=== PATIENT | male | born 1960 | race Caucasian/White ===

== ENCOUNTER → 2018-01-21 08:08 | Outpatient (CLI) | payer OTHER, SELFPAY ==
--- NOTE | 2018-01-21 08:12 | US_ITS ---
STUDY: THYROID ULTRASOUND REASON FOR EXAM: Male, 57 years old. Nodule felt by doctor. TECHNIQUE: Ultrasound evaluation of the thyroid was performed with real-time and static marin-scale imaging. COMPARISON: None. FINDINGS: RIGHT LOBE: The right lobe of the thyroid gland measures 5.1 x 1.6 x 1.5 cm. There is a homogeneous echotexture. There are no demonstrated solid, cystic or complex lesions. Is normal vascularity on Doppler imaging. LEFT LOBE: The left lobe of the thyroid gland measures 1.1 x 1.5 x 1.6 cm. There is a homogeneous echotexture. There are no demonstrated solid, cystic or complex lesions. Normal vascularity and Doppler imaging. ISTHMUS: The isthmus measures 0.3 cm. The regional lymph nodes are normal. US/Thyroid IMPRESSION: Essentially normal thyroid. Electronically Signed: Franco Gleason DO at 20:06 EDT Tel [phone], Service support ,
== END ==
PROVIDERS: Family Provider Internal Medicine; PCP Internal Medicine; Visit Provider Internal Medicine
DX: E04.1 Nontoxic single thyroid nodule (principal)
CPT/HCPCS: 76536

== ENCOUNTER → 2018-04-13 13:57 | Outpatient (CLI) | payer OTHER, SELFPAY ==
--- NOTE | 2018-04-13 14:00 | RAD_ITS ---
STUDY: X-RAY CHEST REASON FOR EXAM: Male, 57 years old. Shortness of breath. Possible COPD. TECHNIQUE: PA and lateral views of the chest on 3 films. COMPARISON: None. FINDINGS: The lungs are clear and expanded. There is no demonstrated pleural abnormality. Normal size heart. Normal mediastinum and augusto. Normal visualized pulmonary arteries. Normal visualized aortic arch and descending thoracic aorta. There are degenerative changes of the mid thoracic spine. Normal visualized ribs, clavicles, and shoulders. There is no demonstrated abnormality of the visualized soft tissue structures of the upper abdomen. RAD/Chest PA and Lateral IMPRESSION: No acute cardiopulmonary disease. Electronically Signed: Armond Brock MD at 14:11 EDT , Service support ,
== END ==
PROVIDERS: Family Provider Internal Medicine; PCP Internal Medicine; Referring Provider Internal Medicine; Visit Provider Internal Medicine
DX: J44.9 Chronic obstructive pulmonary disease, unspecified (principal)
CPT/HCPCS: 71046

== ENCOUNTER → 2018-06-09 06:57 | Outpatient (CLI) | payer OTHER, SELFPAY ==
--- NOTE | 2018-06-09 07:00 | ECHOD_ITS ---
Reason For Study: OTT Procedure This was a 2D Doppler, Color Flow transthoracic echocardiogram. Exam performed in department. Left Ventricle Normal LV size. Left ventricular systolic function is normal. The estimated ejection fraction is 56 %. Normal diastology for age. No regional wall motion abnormalities noted. Right Ventricle Normal RV size. Normal systolic function. Atria Normal left atrium. Normal right atrium. Mitral Valve Mild diffuse mitral valve thickening. Posterior leaflet mitral valve prolapse. Mild (1+) eccentric mitral valve insufficiency. Tricuspid Valve Normal tricuspid valve. Mild tricuspid valve insufficiency. Aortic Valve Normal aortic valve. Trisinus/trileaflet aortic valve. Pulmonic Valve Normal pulmonic valve. Great Vessels Normal aortic root. The pulmonary artery is normal size. Normal inferior vena cava. Pericardium/Pleural No pericardial effusion. MMode/2D Measurements & Calculations LVIDd: 4.9 cm IVSd: 0.89 cm Ao root diam: 3.4 cm LVIDs: 3.3 cm LVPWd: 0.94 cm RVDd: 3.8 cm FS: 33.1 % LAV(MOD-bp): 56.2 ml LVAd ap4: 33.6 cm2 EDV(MOD-sp2): 91.0 ml LAV(MOD-bp) Indexed: 26.0 ml/m2 EDV(MOD-sp4): 109.6 ml EF(MOD-sp2): 59.5 % LAV(MOD-sp2): 62.2 ml EDV(sp4-el): 108.0 ml LAV(MOD-sp4): 51.3 ml LVAs ap4: 21.1 cm2 ESV(MOD-sp4): 49.9 ml ESV(sp4-el): 48.1 ml EF(MOD-sp4): 54.5 % EF(sp4-el): 55.4 % SV(MOD-sp4): 59.8 ml SV(MOD-sp2): 54.1 ml SV(sp4-el): 59.8 ml LA dimension(2D): 3.6 cm LA A4 area: 19.7 cm2 RA A4 area: 17.4 cm2 Time Measurements MV dec time: 0.23 sec Doppler Measurements & Calculations MV E max arash: 42.7 cm/sec Lat Peak E' Arash: 10.3 cm/sec Med Peak E' Arash: 8.3 cm/sec MV A max arash: 39.3 cm/sec E/E' lat: 4.2 E/E' med: 5.1 MV E/A: 1.1 Ao V2 max: 88.6 cm/sec LV V1 max: 96.1 cm/sec PA V2 max: 112.8 cm/sec Ao max P.1 mmHg LV V1 max P.7 mmHg TR max arash: 169.9 cm/sec TR max P.6 mmHg Interpretation Summary Normal LV size. Left ventricular systolic function is normal. The estimated ejection fraction is 56 %. Normal diastology for age. Mild (1+) eccentric mitral valve insufficiency. Ordering Physician: Rebecca Bedoya Referring Physician: Rebecca Bedoya Performed By: Leilani Cisse, TRISHA, RVT
--- NOTE | 2018-06-09 09:40 | STRESSREP ---
Stress Test Report Exercise myocardial perfusion stress test. 57-year-old man with a history of dyspnea on exertion. Medications vitamins. Stress protocol: Resting EKG demonstrates sinus bradycardia with a rate of 57 bpm resting blood pressure 140/98 mmHg. The patient exercised according to regular Jamil protocol for a total duration of 11 minutes and 16 seconds completing 2 minutes and 16 seconds into stage III of the Jamil protocol. The maximum workload attained was 13.4 metabolic equivalents. The maximum heart rate was 146 bpm which was 89% of maximum predicted heart rate. The patient maintained sinus rhythm throughout the recording. At rest there were no ST or T wave changes noted suggest ischemia peak exercise nonspecific ST-T wave changes were noted with normally the criteria for ischemia. No clinical angina was noted resting blood pressure 140/98 with a peak blood pressure 180/84. No clinical angina was noted the test was terminated due to leg fatigue. Myocardial perfusion protocol. 11.9 mCi of technetium 99m sestamibi was injected at rest. The patient exercised according to regular Jamil protocol for total duration of 11 minutes plus. At peak exercise 34.3 mCi of technetium 99m sestamibi was injected stress images were obtained stress and rest images were reconstructed and compared in the short axis vertical and horizontal long axis. Gated images were also obtained next Perfusion SPECT analysis. Review of the images demonstrate normal uptake of tracer noted in all areas of myocardium. The resting images similarly demonstrate normal uptake of tracer noted in all areas of myocardium. No areas of reversibility are noted suggest ischemia no previous infarct is noted. Next Gated SPECT analysis: The gated ejection fraction is noted to be 58%. Conclusion: Normal exercise myocardial perfusion stress test at a high workload. Preserved ejection fraction. No clinical angina noted.
--- OUTSIDE RECORDS SUMMARY | 2018-09-10 11:32 | XMS RPT_ITS | Continuity of Care Document ---
:1960 Author Organization [facility] Address [address] [place] [address] Phone Care Team Providers Name Role Phone Rebecca Bedoya DO Unavailable Dr. Hneri More Unavailable Dr. 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: Active Anxiety (F41.9, 300.00) Comments: improving Status: Active Bilateral carpal tunnel syndrome (G56.03, 354.0) Comments: improved Status: Active BMI 25.0-25.9,adult (Z68.25, V85.21) Status: Active BPH without urinary obstruction (N40.0, 600.00) Status: Active COPD (chronic obstructive pulmonary disease) (J44.9, 496) Comments: may be allergic we discussed singulair potentially Status: Active Decreased exercise tolerance (R68.89, 780.99) Comments: get testing Status: Active Dizziness (R42, 780.4) Status: Active Dysplastic nevi (D23.9, 216.9) Status: Active DYSPLASTIC NEVUS Status: Active Dyspnea on exertion (R06.09, 786.09) Status: Active Elevated BP without diagnosis of hypertension (R03.0, 796.2) Comments: watch salt and caffeine Status: Active Encounter for screening for malignant neoplasm of colon (Renamed from Special screening for malignant neoplasms, colon) (Z12.11, V76.51) Status: Active Encounter for screening for malignant neoplasm of prostate (Renamed from Screening for prostate cancer) (Z12.5, V76.44) Status: Active Fatigue (R53.83, 780.79) Comments: snoring - family hx sleep apnea consider if heart tests neg Status: Active History of tobacco use (Z87.891, V15.82) Comments: curent nonsmoker Status: Active Hypercholesterolemia (E78.00, 272.0) Status: Active Influenza vaccination declined (Renamed from Refused influenza vaccine) (Z28.21, V64.06) Status: Active [facility] EXAM Status: Active Screening for prostate cancer (Z12.5, V76.44) Status: Active Unspecified Diagnosis Status: Active Unspecified hearing loss, unspecified ear (H91.90, 389.9) Comments: ?? Status: Active Medications Name Dates Details No Known Historical Medications Asmanex 120 Metered Doses 220 MCG/INH Inhalation Aerosol Powder Breath Activated 2 (two) Puff puffs qd for 0 days Quantity: 2 {Inhalation} Refills: 0 Ordered:29-May-2018 Elke Beasley Start : 03-Apr-2018 End : 29-May-2018 Inactive CELEXA, 10MG (Oral Tablet) 1 (one) Tablet qd for 0 days Quantity: 30 {Tablet} Refills: 3 Ordered:24-Apr-2011 Racquel Gupta LPN Start : 11-Dec-2009 End : 24-Apr-2011 Inactive VICODIN, 5-500MG (Oral Tablet) 1 Tablet q 8hrs prn for 1 days Refills: 0 Ordered:08-Aug-2016 Racquel Gupta LPN Start : 24-Apr-2011 End : 25-Apr-2011 Inactive Allergies and Adverse Reactions Name Dates Details No Known Allergies (Allergy) Onset: 14-Jan-2018 Status: Active No Known Drug Allergies (Allergy) Status: Active Past Medical History Name Dates Details BMI 26.0-26.9,adult (Z68.26, V85.22) Status: Inactive as of 14-Jan-2018 Dizziness and giddiness (R42, 780.4) Status: Resolved as of 14-Jun-2009 Low back pain (M54.5, 724.2) Status: Inactive as of 02-Sep-2017 Lumbar compression fracture 805.4 (805.4) Status: Inactive as of 02-Sep-2017 Neck pain (M54.2, 723.1) Comments: going to see chiropractor- and let me know if needs intervention Status: Inactive as of 02-Sep-2017 OTHER SYMPTOMS INVOLVING THE DIGESTIVE SYSTEM (787.99) Status: Inactive as of 02-Sep-2017 Thyroid nodule (E04.1, 241.0) Status: Inactive as of 03-Apr-2018 Vasectomy Status: Inactive as of 02-Sep-2017 Procedures Procedure Dates Details Colonoscopy, Screening Completed 29-Sep-2017 Vasectomy Completed Date Value Details 13-Apr-2018 Chest PA and Lateral Result: Comments: See Note; NOTES: Imaging Services [address] [place] [id number] Chest PA and Lateral MR#: [id number] Acct: [id number] Name: DERRICK MCCONNELL Rep #: [id number] 20 : 1960 M 57 From: Kenan Brock MD PCP: Rebecca Bedoya DO Status: REG CLI Study: Chest PA and Lateral Date of Exam: 04/13/18 Exam# [id number] Ordering Dr: Rebecca Bedoya DO STUDY: X-RAY CHEST BOOGIE SON FOR EXAM: Male, 57 years old. Shortness of breath. Possible COPD. TECHNIQUE: PA and lateral views of the chest on 3 films. COMPARISON: None. FINDINGS: The paula gs are clear and expanded. There is no demonstrated pleural abnormality. Normal size heart. Normal mediastinum and augusto. Normal visualized pulmonary arteries. Normal visualized aortic arch and descendi ng thoracic aorta. There are degenerative changes of the mid thoracic spine. Normal visualized ribs, clavicles, and shoulders. There is no demonstrated abnormality of the visualized soft tissue struct ures of the upper abdomen. 0075 RAD/Chest PA and Lateral IMPRESSION: No acute cardiopulmonary disease. Electronically Signed: Armond Brock MD 2 at 14:11 EDT , Service support , CC: Rebecca Bedoya DO Screenplay Writer: Signed 21-Jan-2018 Thyroid Result: Comments: See Note; NOTES: [facility] [address] [place] [address] Thyroid MR#: [id number] Acct: [id number] Name: DERRICK MCCONNELL Rep #: [id number] : [birth year] M 57 From: Franco Gleason DO PCP: Rebecca Bedoya DO Status: REG CLI Study: Thyroid Date of Exam: 01/21/18 Exam# [id number] Ordering Dr: Rebecca Bedoya DO STUDY: THYROID ULTRASOUND REASON FOR EXAM: Male, 57 years old. Nodule felt by doctor. TECHNIQUE: Ultrasound evaluation of the thyroid was performed with real-time and static marin-scale imaging. COMPARISON: None. FINDINGS: RIGHT LOBE: The right lobe of the thyroid gland measures 5.1 x 1.6 x 1.5 cm. There is a homogeneous echotexture. There are no demonstrated solid, cystic or complex lesions. Is normal vascular ity on Doppler imaging. LEFT LOBE: The left lobe of the thyroid gland measures 1.1 x 1.5 x 1.6 cm. There is a homogeneous echotexture. There are no demonstrated solid, cystic or complex lesions. Normal vascularity and Doppler imaging. ISTHMUS: The isthmus measures 0.3 cm. The regional lymph nodes are normal. US/Thyroid IMPRESSION: Essentiall y normal thyroid. Electronically Signed: Franco Gleason DO at 20:06 EDT Tel [phone], Service support , CC: Rebecca Bedoya DO Screenplay Writer: Signed Immunization Name Dates Details Tetanus on: Nov-2017 Family History Unknown Family Member Name Dates Details Father Comments: Hypertension. 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 Status: Active Smoking Status Name Dates Details Former smoker Vital Signs Date Test Result Details :57 Temperature 98.1 f Comments: Method: Temporal Pulse 77 /min Comments: Pattern: Regular Respiration Rate 16 /min Comments: Pattern: Unlabored O2 SAT 97 % Comments: Room air BP Systolic 110 mm[Hg] Comments: Patient Position: Sitting; Cuff Location: Left Arm; Cuff Size: Standard BP Diastolic 78 mm[Hg] Comments: Patient Position: Sitting; Cuff Location: Left Arm; Cuff Size: Standard Weight 198 lb Height 73 in Body Mass Index Calculated 26.12 kg/m2 Body Surface Area Calculated 2.14 m2 :55 Temperature 97.8 f Comments: Method: Temporal Pulse 70 /min Comments: Pattern: Regular Respiration Rate 16 /min Comments: Pattern: Unlabored BP Systolic 122 mm[Hg] Comments: Patient Position: Sitting; Cuff Location: Left Arm; Cuff Size: Standard BP Diastolic 70 mm[Hg] Comments: Patient Position: Sitting; Cuff Location: Left Arm; Cuff Size: Standard Weight 197 lb Height 73 in Body Mass Index Calculated 25.99 kg/m2 Body Surface Area Calculated 2.14 m2 :51 Temperature 97.2 f Comments: Method: Temporal Pulse 78 /min Comments: Pattern: Regular Respiration Rate 16 /min Comments: Pattern: Unlabored BP Systolic 118 mm[Hg] Comments: Patient Position: Sitting; Cuff Location: Left Arm; Cuff Size: Standard BP Diastolic 70 mm[Hg] Comments: Patient Position: Sitting; Cuff Location: Left Arm; Cuff Size: Standard Weight 197 lb Height 73 in Body Mass Index Calculated 25.99 kg/m2 Body Surface Area Calculated 2.14 m2 :11 Temperature 97 f Pulse 81 /min Comments: Pattern: Regular Respiration Rate 18 /min Comments: Pattern: Unlabored O2 SAT 97 % Comments: Room air BP Systolic 138 mm[Hg] Comments: Patient Position: Sitting; Cuff Location: Left Arm; Cuff Size: Standard BP Diastolic 76 mm[Hg] Comments: Patient Position: Sitting; Cuff Location: Left Arm; Cuff Size: Standard Weight 198.125 lb Height 73 in Body Mass Index Calculated 26.14 kg/m2 Body Surface Area Calculated 2.14 m2 :31 Temperature 98.6 f Comments: Method: Oral Pulse 88 /min Comments: Pattern: Regular Respiration Rate 16 /min Comments: Pattern: Unlabored BP Systolic 132 mm[Hg] Comments: Patient Position: Sitting; Cuff Location: Left Arm; Cuff Size: Large BP Diastolic 90 mm[Hg] Comments: Patient Position: Sitting; Cuff Location: Left Arm; Cuff Size: Large Weight 200.25 lb Height 73 in Body Mass Index Calculated 26.42 kg/m2 Body Surface Area Calculated 2.15 m2 :37 Temperature 98.6 f Pulse 72 /min Comments: Pattern: Regular Respiration Rate 18 /min Comments: Pattern: Unlabored BP Systolic 108 mm[Hg] Comments: Patient Position: Sitting; Cuff Location: Left Arm; Cuff Size: Standard BP Diastolic 82 mm[Hg] Comments: Patient Position: Sitting; Cuff Location: Left Arm; Cuff Size: Standard Weight 201 lb :25 Temperature 95.6 f Comments: Method: Undefined Pulse 70 /min Comments: Pattern: Regular Respiration Rate 18 /min Comments: Pattern: Undefined BP Systolic 118 mm[Hg] Comments: Patient Position: Sitting; Cuff Location: Left Arm; Cuff Size: Standard BP Diastolic 80 mm[Hg] Comments: Patient Position: Sitting; Cuff Location: Left Arm; Cuff Size: Standard Weight 196 lb Height 0 in Head Circumference 0.00 cm :45 Temperature 98.3 f Comments: Method: Undefined Pulse 80 /min Comments: Pattern: Regular Respiration Rate 16 /min Comments: Pattern: Undefined BP Systolic 110 mm[Hg] Comments: Patient Position: Sitting; Cuff Location: Right Arm; Cuff Size: Standard BP Diastolic 76 mm[Hg] Comments: Patient Position: Sitting; Cuff Location: Right Arm; Cuff Size: Standard Weight 193 lb Height 73 in Body Mass Index Calculated 25.46 kg/m2 Body Surface Area Calculated 2.12 m2 Head Circumference 0.00 cm Results Date Description Value Details [id number]-[id number] Microscopic Examination Comments: PATIENT WAS FASTINGPERFORMED BY: [employer] [facility]ake75[address] [facility] [id number] BY: [employer] [id number] Bacteria Few (Normal) Mucus Threads Present (Normal) Epithelial Cells (non renal) None seen {/hpf} (Normal) Range: 0 - 10 RBC 0-2 {/hpf} (Normal) Range: 0 - 2 WBC 0-5 {/hpf} (Normal) Range: 0 - 5 13-Lrd-393457:43 TESTOSTERONE FREE (10470) Comments: PATIENT WAS FASTINGPERFORMED BY: [employer] [id number] BY: [facility] [id number] Free Testosterone(Direct) 10.4 pg/mL (Normal) Range: 7.2-24.0 97-Pcr-012695:43 URINALYSIS, W/ MICRO Comments: PATIENT WAS FASTINGPERFORMED BY: [employer] [id number] BY: [employer] [id number] ([address]) Microscopic Examination See below: (Normal) Comments: Microscopic was indicated and was performed. Microscopic Examination MICRON (Normal) Comments: Microscopic follows if indicated. Nitrite, Urine Negative (Normal) Urobilinogen,Semi-Qn 0.2 mg/dL (Normal) Range: 0.2-1.0 Bilirubin Negative (Normal) Occult Blood Negative (Normal) Ketones Negative (Normal) Glucose Negative (Normal) Protein Negative (Normal) WBC Esterase Negative (Normal) Appearance Clear (Normal) Urine-Color Yellow (Normal) pH 7.5 (Normal) Range: 5.0-7.5 Specific [place] 1.022 (Normal) Range: 1.005-1.030 38-Egx-502316:43 METABOLIC PANEL, Comments: PATIENT WAS FASTINGPERFORMED BY: [facility] RahwayTytdka2689 [facility] [id number] BY: [facility] [address] [facility] [id number] [facility] ([address]) ALT (SGPT) 19 [iU]/L (Normal) Range: 0-44 AST (SGOT) 25 [iU]/L (Normal) Range: 0-40 Alkaline Phosphatase, S 41 [iU]/L (Normal) Range: 39-117 Bilirubin, Total 0.5 mg/dL (Normal) Range: 0.0-1.2 A/G Ratio 1.8 (Normal) Range: 1.2-2.2 Globulin, Total 2.3 g/dL (Normal) Range: 1.5-4.5 Albumin, Serum 4.1 g/dL (Normal) Range: 3.5-5.5 Protein, Total, Serum 6.4 g/dL (Normal) Range: 6.0-8.5 Calcium, Serum 9.1 mg/dL (Normal) Range: 8.7-10.2 Carbon Dioxide, Total 24 mmol/L (Normal) Range: 18-29 Chloride, Serum 103 mmol/L (Normal) Range: 96-106 Potassium, Serum 4.3 mmol/L (Normal) Range: 3.5-5.2 Sodium, Serum 142 mmol/L (Normal) Range: 134-144 BUN/Creatinine Ratio 15 (Normal) Range: 9-20 eGFR If Africn Am 93 mL/min/1.73 (Normal) eGFR If NonAfricn Am 81 mL/min/1.73 (Normal) Creatinine, Serum 1.03 mg/dL (Normal) Range: 0.76-1.27 BUN 15 mg/dL (Normal) Range: 6-24 Glucose, Serum 98 mg/dL (Normal) Range: 65-99 03-Ner-390844:43 CBC, PLATELETS & AUT DIFF Comments: PATIENT WAS FASTINGPERFORMED BY: [facility] RahwayCpbzzd6687 [facility] [id number] BY: [facility] [id number] Information: NURSE DRAW; review at 09/29 appt (54413) Immature Grans (Abs) 0.0 {x10E3/uL} (Normal) Range: 0.0-0.1 Immature Granulocytes 0 % (Normal) Baso (Absolute) 0.0 {x10E3/uL} (Normal) Range: 0.0-0.2 Eos (Absolute) 0.6 {x10E3/uL} (Abnormal) Range: 0.0-0.4 Monocytes(Absolute) 0.5 {x10E3/uL} (Normal) Range: 0.1-0.9 Lymphs (Absolute) 1.7 {x10E3/uL} (Normal) Range: 0.7-3.1 Neutrophils (Absolute) 2.5 {x10E3/uL} (Normal) Range: 1.4-7.0 Basos 1 % (Normal) Eos 11 % (Normal) Monocytes 10 % (Normal) Lymphs 32 % (Normal) Neutrophils 46 % (Normal) Platelets 210 {x10E3/uL} (Normal) Range: 150-379 RDW 14.1 % (Normal) Range: 12.3-15.4 MCHC 34.2 g/dL (Normal) Range: 31.5-35.7 MCH 32.6 pg (Normal) Range: 26.6-33.0 MCV 96 fL (Normal) Range: 79-97 Hematocrit 40.7 % (Normal) Range: 37.5-51.0 Hemoglobin 13.9 g/dL (Normal) Range: 13.0-17.7 RBC 4.26 {x10E6/uL} (Normal) Range: 4.14-5.80 WBC 5.4 {x10E3/uL} (Normal) Range: 3.4-10.8 37-Kqc-135326:43 VITAMIN B-12 Comments: PATIENT WAS FASTINGPERFORMED BY: [facility] [place] [id number] [facility] [id number] BY: [facility] [id number] (CYANOCOBALAMIN) (14456) Vitamin B12 958 pg/mL (Normal) Range: 232-1245 91-Oil-494047:43 PSA (PROSTATE SPECIFIC Comments: PATIENT WAS FASTINGPERFORMED BY: CB [facility] Klfxts[address] [place] [id number] BY: BN [facility] Fzwbfjymiw3859 [facility] [id number] ANTIGEN) (V76.44) Prostate Specific Ag, 1.1 ng/mL (Normal) Range: 0.0-4.0 Serum Comments: [employer] ECLIA methodology. .According to the [employer] [employer], Serum PSA shoulddecrease and remain at undetectable levels after radicalprostatectomy. The AUA defines biochemical recurrence as an initialPSA value 0.2 ng/mL or greater followed by a subsequent confirmatoryPSA value 0.2 ng/mL or greater.Values obtained with d ifferent assay methods or kits cannot be usedinterchangeably. Results cannot be interpreted as absolute evidenceof the presence or absence of malignant disease. :47 LIPID CHOL 223 mg/dL (Abnormal) Comments: <200 mg/dL Ubbmgpyoq765-396 mg/dL Borderline>240 mg/dL High Risk HDL 52 mg/dL (Normal) Comments: Reference RangeHDL <40 mg/dL Low HDL CholesterolHDL >or= 60 mg/dL High HDL Cholesterol LDL 156 mg/dL (Abnormal) Range: 0-130 TRIG 77 mg/dL (Normal) Comments: Serum Triglycerides Reference IntervalNormal <150 mg/dLBorderline high 150 - 199 mg/dLHigh 200 - 499 mg/ dLVery High > or = 500 mg/dL VLDL 15 mg/dL (Normal) Range: 5-40 :47 LIVER ALB 4.0 g/dL (Normal) Range: 3.4-5.0 ALK P 47 U/L (Abnormal) Range: 50-136 ALT 22 U/L (Normal) Range: 12-78 AST 14 U/L (Abnormal) Range: 15-37 D BILI 0.16 mg/dL (Normal) Range: 0.00-0.30 T BILI 0.70 mg/dL (Normal) Range: 0.00-1.00 T PROT 7.1 g/dL (Normal) Range: 6.4-8.2 87-Sad-18336:18 CBCD,SMEAR DIFF RED CELL MORPH SeeNote {NORMAL} (Normal) Comments: Result: NORM C+C BAND 3 % (Normal) Range: 0-5 CELLS COUNTED 100 (Normal) EOS 14 % (Abnormal) Range: 0-5 HCT 43.0 % (Normal) Range: 40-54 HGB 14.4 g/dL (Normal) Range: 14.0-18.0 LYMPH 33 % (Normal) Range: 19-41 MCH 32.6 pg (Abnormal) Range: 27.0-32.0 MCHC 33.6 g/dL (Normal) Range: 32-36 MCV 97.0 fL (Abnormal) Range: 80-94 MONOCYTE 9 % (Normal) Range: 0-10 PLT 189 K/mm3 (Normal) Range: 150-450 PLT EST SeeNote (Normal) Comments: Result: ADEQUATE RBC 4.43 {M/mm3} (Abnormal) Range: 4.6-6.2 RDW 13.4 % (Normal) Range: 11.6-14.6 SEGS 41 % (Abnormal) Range: 47-70 WBC 7.0 K/mm3 (Normal) Range: 4.4-11.0 :18 COMP METABOLIC A/G 1.2 {RATIO} (Normal) Range: 0.9-2.4 ALB 3.9 g/dL (Normal) Range: 3.4-5.0 ALK P 37 U/L (Abnormal) Range: 50-136 ALT 25 U/L (Normal) Range: 12-78 Comments: Please Note: Revised Reference Range effective 09 AST 16 U/L (Normal) Range: 15-37 BUN/CRE 13.0 {RATIO} (Normal) Range: 10-20 CA 8.9 mg/dL (Normal) Range: 8.5-10.1 CL 101 mmol/L (Normal) Range: 98-107 CO2 29.0 mmol/L (Normal) Range: 21.0-32.0 EST GFR - AA 103 mL/min (Normal) GAP 10 (Normal) Range: 5-15 GLOB 3.2 g/dL (Normal) Range: 2.7-4.2 K 3.9 mmol/L (Normal) Range: 3.5-5.1 NA 140 mmol/L (Normal) Range: 136-145 T BILI 0.60 mg/dL (Normal) Range: 0.00-1.00 T PROT 7.1 g/dL (Normal) Range: 6.4-8.2 BUN 13 mg/dL (Normal) Range: 7-18 CREAT,SERUM 1.0 mg/dL (Normal) Range: 0.8-1.3 EST GFR 85 mL/min (Normal) GLU 83 mg/dL (Normal) Range: 70-110 :18 LIPID CHOL 226 mg/dL (Abnormal) Comments: <200 mg/dL Desirable 200-240 mg/dL Borderline >240 mg/dL High Risk HDL 48 mg/dL (Normal) Comments: Reference Range HDL <40 mg/dL Low HDL Cholesterol HDL >or= 60 mg/dL High HDL Cholesterol LDL 159 mg/dL (Abnormal) Range: 0-130 TRIG 94 mg/dL (Normal) Comments: Serum Triglycerides Reference Interval Normal <150 mg/dL Borderline high 150 - 199 mg/dL High 200 - 499 mg/dL Very High > or = 500 mg/dL VLDL 19 mg/dL (Normal) Range: 5-40 :18 PSA, SCREEN 0.6 ng/mL (Normal) Range: 0.0-4.0 :18 TSH 1.32 {uIU/mL} (Normal) Range: 0.358-3.74 Plan of Care Name Dates Details Instructions Dyspnea on exertion : Eprescribed prescriptions (G8553) Indication: Dyspnea on exertion COPD (chronic obstructive pulmonary disease) : Eprescribed prescriptions (G8553) Indication: COPD (chronic obstructive pulmonary disease) [facility] EXAM : Eprescribed prescriptions (G8553) Indication: [facility] EXAM BMI 26.0-26.9,adult : Eprescribed prescriptions (G8553) Indication: BMI 26.0-26.9,adult Low back pain : Reviewed Diagnostic Tests Indication: Low back pain Low back pain : Reviewed Buck Swamper Letter Indication: Low back pain Hypercholesterolemia : Diet and Exercise Indication: Hypercholesterolemia Anxiety : Antidepressant Usage Indication: Anxiety Planned Observations HEPATIC FUNCTION PANEL (11060)Indication: Hypercholesterolemia On: 1-Xmp-550637:25 Request PSA (PROSTATE SPECIFIC ANTIGEN) (V76.44)Indication: Screening for prostate cancer On: :25 Request TSH (06816)Indication: Hypercholesterolemia On: :24 Request CBC WITH MANUAL DIFF (00956)Indication: Hypercholesterolemia On: :24 Request LIPID PANEL (18958)Indication: Hypercholesterolemia On: :24 Request CBC WITH MANUAL DIFF (03784)Indication: Allergic eosinophilia On: :09 Request PSA (PROSTATE SPECIFIC ANTIGEN) (V76.44)Indication: BPH without urinary obstruction On: :09 Request CBC WITH MANUAL DIFF (43752)Indication: Allergic eosinophilia On: :51 Request HEPATIC FUNCTION PANEL (99247)Indication: Hypercholesterolemia On: :50 Request LIPID PANEL (08820)Indication: Hypercholesterolemia On: :49 Request TSH (28275)Indication: Dizziness and giddiness On: :39 Request PSA (PROSTATE SPECIFIC ANTIGEN) (V76.44)Indication: BPH without urinary obstruction On: :38 Request LIPID PANEL (74215)Indication: Hypercholesterolemia On: :38 Request METABOLIC PANEL, COMPREHENSIVE (28558)Indication: Dizziness and giddiness On: :38 Request CBC WITH MANUAL DIFF ([id number])Indication: Dizziness and giddiness On: :38 Request Planned Encounters Medical; [facility] Review Results - On: 03-Jul-2018 9:45 [facility] Fast DO, Rebecca A Fast DO, Rebecca A Planned Procedures Nuclear Stress Test/Stress On: 29-May-2018 Intent SPECT/TreadmillBy: Fast DO, Rebecca A Fast DO, Rebecca A Echo CompleteBy: Fast DO, Rebecca A Fast On: 29-May-2018 Intent DO, Rebecca A CHEST XRAY, PA & LATERAL ([id number])By: On: 03-Apr-2018 Intent Fast DO, Rebecca A Fast DO, Rebecca A CHEST XRAY, PA & LATERAL ([id number])By: On: 14-Jan-2018 Intent Fast DO, Rebecca A Fast DO, Rebecca A PFT - Before and After SpiroBy: Fast On: 14-Jan-2018 Intent DO, Rebecca A Fast DO, Rebecca A Ultrasound - ThyroidBy: Fast DO, Rebecca On: 14-Jan-2018 Intent A Fast DO, Rebecca A ELECTROCARDIOGRAM, COMPLETE (ECG) On: 02-Sep-2017 Intent ([id number])By: Rebecca Bedoya DO Fast DO, Comments: no chargeekg showed normal sinus rhythym, normal axis, no acute st/t wave changes sinus jackson Rebecca A EKG (54222)By: Rebecca Bedoya DO Fast On: 13-Apr-2009 Intent Rebecca GARCIA A Comments: ekg showed normal sinus rhythym, normal axis, no acute st/t wave changes Instructions Name Dates Details Dyspnea on exertion : How to access health information online Indication: Dyspnea on exertion Dyspnea on exertion : How to access health information online - Detail Indication: Dyspnea on exertion Dyspnea on exertion : Patient Instructions Indication: Dyspnea on exertion COPD (chronic obstructive pulmonary disease) : How to access health information online Indication: COPD (chronic obstructive pulmonary disease) COPD (chronic obstructive pulmonary disease) : How to access health information online - Detail Indication: COPD (chronic obstructive pulmonary disease) COPD (chronic obstructive pulmonary disease) : Patient Instructions Indication: COPD (chronic obstructive pulmonary disease) [facility] EXAM : How to access health information online Indication: [facility] EXAM [facility] EXAM : How to access health information online - Detail Indication: [facility] EXAM [facility] EX[facility] : Patient Instructions Indication: [facility]LL[facility] EXAM BMI 26.0-26.9,adult : How to access health information online Indication: BMI 26.0-26.9,adult BMI 26.0-26.9,adult : How to access health information online - Detail Indication: BMI 26.0-26.9,adult BMI 26.0-26.9,adult : Patient Instructions Indication: BMI 26.0-26.9,adult Advance Directives Name Dates Details Immunization Registry [place] - Effective on Effective: 14-Jan-201801/14/2018. Expiration date unspecified Encounters Office Visit On: 29-May-2018 9:42 Encounter Reason: Follow up acute care visit - The patient feels the same (used the asmanex every day faithfully for about 1 week then started to get mouth sores so backed off of it. Did not notice much of a difference w End: 31-May-2018 18:25 hen using it). Patient has been compliant with instructions. Current medication use: experiencing side effects (mouth sores from the asmanex) and non-compliant with dosing regimen. Note for [facility]: getting estevez and decrease exercise tolerance- notes inability to perform like was - no cough wheeze- didnt think inhaler helped- no overt palitations maybe lightheaded- symptoms not better with inhalerEncounter Diagnosis: BMI 25.0-25.9,adult, History of tobacco use, Dyspnea on exertion, Decreased exercise tolerance, COPD (chronic obstructive pulmonary disease), Fatigue [facility] Office Visit On: 03-Apr-2018 9:31 Encounter Reason: Follow up tests - Date: (01/2018 thyroid scan and pft exam). Note for Discuss procedure results: thyroid good hasnt had the carpal tunnel like he had the splints do help when he wears them - blood ??wa End: 05-Apr-2018 21:03 s ok today- is getting skin check done- does get estevez - no routien cough or wheezeEncounter Diagnosis: History of tobacco use, Influenza vaccination declined (Renamed from Refused influenza vaccine), BMI 25.0-25.9,adult, Thyroid nodule, Bilateral carpal tunnel syndrome, COPD (chronic obstructive pulmonary disease) [facility] Office Visit On: 14-Jan-2018 7:51 Encounter Reason: Physical male exam - General health: feels well with no complaints, has good energy level (getting better, has been going to chiropractor and getting Sarapin injections) and is sleeping well. The patien End: 22-Mar-2018 20:26 t's appetite is normal. Nutrition: normal/adequate. Exercises 3 days per week. Sleeps on average 7 (7-8) hours per night. Normal bowel and bladder habits. There are no current emotional problems. Preven tative measures done by patient are screening, colonoscopy (09/2017 - repeat 10 yrs) and PSA (08/2017). Note for Physical exam: got tetanus as had fish hook in finger that healed well- getting sarapin i njections in neck and has loosened him up- bp is good and weight coming down - still working out routinely- he feels like energy ok- still some groggy in am- snoresEncounter Diagnosis: History of tobacco use, BMI 25.0-25.9,adult, [facility] WELLNESS EXAM , Thyroid nodule, Abnormal lung function test [facility] Phone Encounter On: 17-Oct-2017 13:17 [facility] End: 17-Oct-2017 13:18 Office Visit On: 02-Sep-2017 10:40 Encounter Reason: new patient male physicial - General health: feels well with no complaints, has good energy level and is sleeping well. The patient's appetite is decreased. Nutrition: normal/adequate. Exercises 4 days End: 02-Sep-2017 13:34 per week. Sleeps on average 7 (7-8) hours per night. Normal bowel and bladder habits. Safety measures include appropriate use of safety belts, appropriate use of helmets and home smoke detectors. There are no current emotional problems. The patient's libido is normal. 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 numbness gets better- - the elbows - thinks maybe from repetitive motion 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- lateral tendinitis- has seen lit for it- he has given him things to do for t hat- - he takes alot of supplements calcium magnesium- he used to take shark cartilageEncounter Diagnosis: BMI 26.0-26.9,adult, History of tobacco use, Bilateral carpal tunnel syndrome, Fatigue, Encounter for screening for malignant neoplasm of colon (Renamed from Special screening for malignant neoplasms, colon), Encounter for screening for malignant neoplasm of prostate (Renamed from Screening for prostate cancer), Dizziness, Elevated BP without diagnosis of hypertension, Dysplastic nevi [facility] Office Visit On: 22-Jul-2017 8:10 Encounter Reason: [facility] End: 22-Jul-2017 11:02 Office Visit On: 24-Apr-2011 13:27 Encounter Reason: Follow up ER - Reason for hospitalization note: (fall from his roof at home on sat after cleaning the gutters friday -- imaging in ER demonstrated compression fx at L2 -- ). Patient has been compliant End: 24-Apr-2011 14:26 with instructions. Current medication use: experiencing side effects and compliant with dosing regimen. The patient does not feel well, has decreased energy level and is sleeping poorly. Patient sleeps 5 hours per night. Nutrition: balanced diet. Encounter Diagnosis: Unspecified Diagnosis, Low back pain (724.2), Lumbar compression fracture 805.4, Hypercholesterolemia (272.0), SCREENING FOR CANCER OF THE PROSTATE (V76.44) [facility] Office Visit On: 16-Mar-2010 7:37 Encounter Reason: Neck pain - The onset of the neck pain has been gradual following no specific incident and has been occurring in an intermittent pattern for 1 months. The course has been without change. The neck pain i End: 16-Mar-2010 8:21 s described as a mild dull aching. The neck pain is described as being located in the occipital area and right over cervical spine. The pain radiates to the up back of head The back pain is relieved by medication (asa and massage). The symptoms have been associated with neck stiffness and headache, while the symptoms have not been associated with fever or trauma. Note for Neck pain: - nopain but gets numb in arm if on phone- - no weeakness, [ADDITIONAL REASON] Follow up for chronic medical issues - The patient feels well with minor complaints (neck pain) ,has good energy level and is sleeping well. Patient has been compliant with instruct ions. Current medication use: no side effects and compliant with dosing regimen. Patient sleeps 7 hours per night. Nutrition: inappropriate diet ,supplemental vitamins and low salt diet. The medical iss ues the patient is following up for include All identified problems below ,high cholesterol and other (bph, anxiety, eosinophilia, hearing loss). Note for Follow up for chronic medical issues: never s aw jabour just didn t get done- he is still having same issues with bowels -change in caliber of stool so willing to try to see him- -he is working on diet and exercise- the anxiety has been better- he is coping better- still taking celexa and taking edge off- - no significasnt side effects , [ADDITIONAL REASON] Follow up, Laboratory Test Results - Date: (01/26/10). Note for Follow up, Panchito lantigua Test Results: - he thinks the celexa is helping and doesnt feel the need to change the dose--does still have some stress but handling it better- havent noticed the dizziness anymore- saw klemme an d took off somethings- -had one dysplastic nevi- awaiting the other biopsy--- hasnt seen [facility] yet-- doesnt have set up yet- has some allergy sx not bad enough to take anything for Encounter Diagnosis: OTHER SYMPTOMS INVOLVING THE DIGESTIVE SYSTEM (787.99), Hypercholesterolemia (272.0), Anxiety (300.00), BPH without Urin. Obst (600.00), Eosinophilia (288.3), Neck pain (723.1) [facility] Office Visit On: 14-Jun-2009 9:25 Encounter Reason: Follow up, Laboratory Test Results - Lab results: abnormal blood lipids and abnormal CBC. Date: (06/01/09). Note for Follow up, Laboratory Test Results: - he thinks the celexa is helping and doesnt fe End: 14-Jun-2009 9:58 el the need to change the dose--does still have some stress but handling it better- havent noticed the dizziness anymore- saw klemme and took off somethings- -had one dysplastic nevi- awaiting the other biopsy--- hasnt seen [facility] yet-- doesnt have set up yet- has some allergy sx not bad enough to take anything forEncounter Diagnosis: Hypercholesterolemia (272.0), Dizziness(780.4), Anxiety (300.00), Eosinophilia (288.3), change in bowel habits [facility] Office Visit On: 12-Apr-2009 14:45 Encounter Reason: new patient male physicial - Last seen more than 1 year ago. General health: feels well with minor complaints (stress with work) ,has good energy level and is sleeping well. The patient's appetite is no End: 13-Apr-2009 9:58 rmal. Nutrition: normal/adequate. Exercises 0 days per week. Sleeps on average 7 hours per night. Normal bowel and bladder habits. Safety measures include appropriate use of safety belts and home smoke detectors. Current emotional problems include anxiety ,depression ,nervousness and sleep disturbances. The patient's libido is normal. Note for new patient male physicial: he feels like not hearing we ll- has to say what alot and hasnt had hearing checked- dads brothers all deafness = he has exposure with work- no ringing in ears, [ADDITIONAL REASON] Anxiety - The onset of the anxiety has been gradual and has been occurring in a persistent pattern for 4 years. The course has been increasing. The anxiety is characterized as apprehension (and frustrated) ,sinking feeling ,nervousness and extreme fear. There are no specific phobia s. Precipitating factors include specific circumstances (work related ). The symptoms have been associated with agitation ,chest pain ,dizziness ,feeling of sadness and sleep disturbance, while the symp toms have not been associated with diarrhea ,headache ,insomnia ,nausea ,panic attack ,suicidal thoughts or vomiting. 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 Obst (600.00) [facility] Historical Summary On: 11-Apr-2009 15:58 [facility] End: 11-Apr-2009 16:00 Payers [employer]/LILIAN MCCONNELL; a guarantor
--- OUTSIDE RECORDS SUMMARY | 2018-09-10 11:32 | XMS RPT_ITS | Continuity of Care Document ---
:1960 Author Organization [facility] Address [address] [place] [address] Phone Care Team Providers Name Role Phone Rebecca Bedoya DO Unavailable Dr. Henri More Unavailable Dr. Tae Caceres Unavailable Luly Monae Unavailable Elke Beasley Unavailable Unavailable Case Monitor, System Unavailable Unavailable Unavailable Unavailable Problems Name [...] Status: Active Decreased exercise tolerance (R68.89, 780.99) Status: Active Dizziness (R42, 780.4) Status: Active [...] and Lateral Result: Comments: See Note; NOTES: [facility] Imaging Services [address] [place] [id number] Chest PA and Lateral MR#: [id number] Acct: [id number] Name: DERRICK MCCONNELL Rep #: [id number] 20 : 1960 M 57 From: Kenan Brock MD PCP: Rebecca Bedoya DO Status: REG CLI Study: Chest PA and Lateral Date of Exam: 04/13/18 Exam# [id number] Ordering Dr: Rebecca Bedoya DO STUDY: X-RAY [...] Service support , CC: Rebecca Bedoya DO Walking Dragline Oiler: Signed 21-Jan-2018 Thyroid Result: Comments: See Note; NOTES: 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 Status: Active No Drug Use Status: [...] 0.00 cm Results Date Description Value Details [id number]-[id number] Microscopic Examination Comments: PATIENT WAS FASTINGPERFORMED BY: [place] [id number] [facility] [id number] BY: [employer] [id number] Bacteria Few (Normal) Mucus Threads Present (Normal) Epithelial Cells (non renal) None seen {/hpf} (Normal) Range: 0 - 10 RBC 0-2 {/hpf} (Normal) Range: 0 - 2 WBC 0-5 {/hpf} (Normal) Range: 0 - 5 50-Yrx-833134:43 TESTOSTERONE FREE (72944) Comments: PATIENT WAS FASTINGPERFORMED BY: [employer] [id number] BY: [employer] [id number] Free Testosterone(Direct) 10.4 pg/mL (Normal) Range: 7.2-24.0 27-Elt-175826:43 URINALYSIS, W/ MICRO Comments: PATIENT WAS FASTINGPERFORMED BY: [employer] [id number] BY: [employer] [id number] ([address]889) Microscopic Examination See below: (Normal) Comments: Microscopic was indicated and was performed. Microscopic Examination MICRON (Normal) Comments: Microscopic follows if indicated. Nitrite, Urine Negative (Normal) Urobilinogen,Semi-Qn 0.2 mg/dL (Normal) Range: 0.2-1.0 Bilirubin Negative (Normal) Occult Blood Negative (Normal) Ketones Negative (Normal) Glucose Negative (Normal) Protein Negative (Normal) WBC Esterase Negative (Normal) Appearance Clear (Normal) Urine-Color Yellow (Normal) pH 7.5 (Normal) Range: 5.0-7.5 Specific Kimper 1.022 (Normal) Range: 1.005-1.030 01-Vom-360600:43 METABOLIC PANEL, Comments: PATIENT WAS FASTINGPERFORMED BY: LabCoSt. Mary's HospitalYysvrr8208 [facility] [id number] BY: [employer] [id number] COMPREHENSIVE (46458) ALT (SGPT) 19 [iU]/L (Normal) Range: 0-44 [...] Glucose, Serum 98 mg/dL (Normal) Range: 65-99 55-Ghm-094436:43 CBC, PLATELETS & AUT DIFF Comments: PATIENT WAS FASTINGPERFORMED BY: LabDXY[place] [id number] [facility] [id number] BY: LabCo[place] 878967 [facility] [id number] Information: NURSE DRAW; review at 09/29 appt (24014) Immature Grans (Abs) 0.0 {x10E3/uL} (Normal) Range: [...] 4.14-5.80 WBC 5.4 {x10E3/uL} (Normal) Range: 3.4-10.8 28-Mjc-171556:43 VITAMIN B-12 Comments: PATIENT WAS FASTINGPERFORMED BY: [facility] Qlqpks3193 [facility] [id number] BY: [employer] [id number] (CYANOCOBALAMIN) (59029) Vitamin B12 958 pg/mL (Normal) Range: 232-1245 89-Ikd-788789:43 PSA (PROSTATE SPECIFIC Comments: PATIENT WAS FASTINGPERFORMED BY: CB [facility] Neeogj1998 [facility] [id number] BY: BN [facility] Smqtbfykta3463 [facility] [id number] ANTIGEN) (V76.44) Prostate Specific Ag, 1.1 ng/mL (Normal) Range: 0.0-4.0 Serum Comments: [employer]ise ECLIA methodology. .According to the [place] [employer], Serum PSA shoulddecrease and remain [...] CHOL 223 mg/dL (Abnormal) Comments: <200 mg/dL Ouscloqes230-367 mg/dL Borderline>240 mg/dL High Risk HDL 52 [...] T PROT 7.1 g/dL (Normal) Range: 6.4-8.2 :18 CBCD,SMEAR DIFF RED CELL MORPH SeeNote {NORMAL} [...] back pain Low back pain : Reviewed Room Service Associate Letter Indication: Low back pain Hypercholesterolemia : Diet and Exercise Indication: Hypercholesterolemia Anxiety : Antidepressant Usage Indication: Anxiety Planned Observations HEPATIC FUNCTION PANEL ([id number])Indication: Hypercholesterolemia On: :25 Request PSA (PROSTATE SPECIFIC ANTIGEN) (V76.44)Indication: Screening for prostate cancer On: :25 Request TSH ([id number])Indication: Hypercholesterolemia On: :24 Request CBC WITH MANUAL DIFF ([id number])Indication: Hypercholesterolemia On: :24 Request LIPID PANEL (13938)Indication: Hypercholesterolemia On: :24 Request CBC WITH MANUAL DIFF ([id number])Indication: Allergic eosinophilia On: :09 Request PSA (PROSTATE SPECIFIC ANTIGEN) (V76.44)Indication: BPH without urinary obstruction On: :09 Request CBC WITH MANUAL DIFF ([id number])Indication: Allergic eosinophilia On: :51 Request HEPATIC FUNCTION PANEL ([id number])Indication: Hypercholesterolemia On: :50 Request LIPID PANEL (17434)Indication: Hypercholesterolemia On: :49 Request TSH ([id number])Indication: Dizziness and giddiness On: :39 Request PSA (PROSTATE SPECIFIC ANTIGEN) (V76.44)Indication: BPH without urinary obstruction On: :38 Request LIPID PANEL (13577)Indication: Hypercholesterolemia On: :38 Request METABOLIC PANEL, COMPREHENSIVE (46086)Indication: Dizziness and giddiness On: :38 Request CBC WITH MANUAL DIFF ([id number])Indication: Dizziness and giddiness On: :38 Request Planned Encounters Medical; [facility] Review Results - On: 03-Jul-2018 9:45 [facility] Fast DO, Rebecca A Fast DO, Rebecca A Planned Procedures Nuclear Stress Test/Stress On: 29-May-2018 Intent SPECT/TreadmillBy: Fast DO, Rebecca A Fast DO, Rebecca A Echo CompleteBy: Fast DO, Rebecca A Fast On: 29-May-2018 Intent DO, Rebecca A CHEST XRAY, PA & LATERAL ([id number])By: On: 03-Apr-2018 Intent Fast DO, Rebecca A Fast DO, Rebecca A CHEST XRAY, PA & LATERAL ([id number])By: On: 14-Jan-2018 Intent Fast DO, Rebecca A Fast DO, Rebecca A PFT - Before and After SpiroBy: Fast On: 14-Jan-2018 Intent DO, Rebecca A Fast DO, Rebecca A Ultrasound - ThyroidBy: Fast DO, Rebecca On: 14-Jan-2018 Intent A Rebecca Bedoya DO ELECTROCARDIOGRAM, COMPLETE (ECG) On: 02-Sep-2017 Intent ([id number])By: Rebecca Bedoya DO DO, Comments: no chargeekg showed normal sinus rhythym, normal axis, no acute st/t wave changes sinus jackson Rebecca A EKG ([id number])By: Rebecca Bedoya DO Fast On: 13-Apr-2009 Intent Rebecca GARCIA Comments: ekg showed normal sinus rhythym, normal [...] Advance Directives Name Dates Details Immunization Registry Rector - Effective on Effective: 14-Jan-201801/14/2018. Expiration date unspecified Encounters Review On: 29-May-2018 9:42 Encounter Reason: Follow up acute care visit - The patient feels the same (used the asmanex every day faithfully for about 1 week then started to get mouth sores so backed off of it. Did not notice much of a difference w hen using it). Patient has been compliant with instructions. Current medication use: experiencing side effects (mouth sores from the asmanex) and non-compliant with dosing regimen. Note for Follow up a cute care visit: getting estevez and decrease exercise tolerance- notes inability to perform like was - no cough wheeze- didnt think inhaler helped- no overt palitations maybe lightheadedEncounter Diagnosis: BMI 25.0-25.9,adult, History of tobacco use, [...] help when he wears them - blood ??ia End: 05-Apr-2018 21:03 s ok today- is [...] he is working out- he joined at [employer]- friday- one day on weekend= he finds [...] Office Visit On: 22-Jul-2017 8:10 Encounter Reason: [facility] End: 22-Jul-2017 11:02 Office Visit On: 24-Apr-2011 13:27 Encounter Reason: Follow up ER - Reason for hospitalization note: (fall from his roof at home on fri after cleaning the gutters friday -- imaging [...] better- havent noticed the dizziness anymore- saw hortencia an d took off somethings- -had one dysplastic nevi- awaiting the other biopsy--- [facility] have [facility] yet- has [...] nevi- awaiting the other biopsy--- [facility]-- [facility] have [facility] yet- has some allergy sx not bad enough to take anything forEncounter Diagnosis: Hypercholesterolemia (272.0), Dizziness(780.4), Anxiety (300.00), Eosinophilia (288.3), change in bowel habits [facility] Office Visit On: 12-Apr-2009 14:45 Encounter Reason: new patient male emelia - Last seen more than 1 year [...] is normal. 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 Obst (600.00) [facility] Historical Summary On: 11-Apr-2009 15:58 [facility] End: 11-Apr-2009 16:00 Payers [employer]/LILIAN MCCONNELL; a guarantor
--- OUTSIDE RECORDS SUMMARY | 2018-09-10 11:32 | XMS RPT_ITS ---
:1960 Author Organization OHIP Care Team Providers Name Role Phone Fast DO, Rebecca A Attending Unavailable Fast DO, Rebecca A Consulting Unavailable Fast, Rebecca Attending Unavailable Fast, Rebecca Referring Unavailable Fast, Rebecca Primary Care Unavailable Jeff, Gateway Attending Unavailable Fast, Rebecca Referring Unavailable Fast, Rebecca Attending Unavailable Fast, Rebecca Referring Unavailable Fast, Rebecca Primary Care Unavailable Fast, Rebecca Attending Unavailable Fast, Rebecca Primary Care Unavailable Fast, Rebecca Attending Unavailable Fast, Rebecca Referring Unavailable Fast, Rebecca Primary Care Unavailable Purpose Purpose PROBLEMS PROBLEMS No Problem Records FoundPROCEDURES PROCEDURES No Procedure Records FoundVITAL SIGNS VITAL SIGNS No Vital Signs Records FoundRESULTS RESULTS ECHOCARDIOGRAM COMPLETE Observed: 06/09/2018 Status: F Source: [place] 10:35 AM [facility] REPOSITORY [facility] Cardiovascular Services [address] [place] [address] Echo Complete 06/09/18 0923 MR#: [id number] Acct: [id number] Name: DERRICK MCCONNELL Rep #: [id number] : 1960 57 From: Braulio Aguilar MD Attending Dr: Rebecca Bedoya DO Status: REG CLI Ordering Dr: Rebecca Bedoya DO Date: 06/09/18 Location: [facility] Sex: M C Admitted: Reason For Study: OTT Procedure This was a 2D Doppler, Color Flow transthoracic echocardiogram. Exam performed in department. Left Ventricle Normal LV size. Left ventricular systolic function is normal. The estimated ejection fraction is 56 %. Normal diastology for age. No regional wall motion abnormalities noted. Right Ventricle Normal RV size. Normal systolic function. Atria Normal left atrium. Normal right atrium. Mitral Valve Mild diffuse mitral valve thickening. Posterior leaflet mitral valve prolapse. Mild (1+) eccentric mitral valve insufficiency. Tricuspid Valve Normal tricuspid valve. Mild tricuspid valve insufficiency. Aortic Valve Normal aortic valve. Trisinus/trileaflet aortic valve. Pulmonic Valve Normal pulmonic valve. Great Vessels Normal aortic root. The pulmonary artery is normal size. Normal inferior vena cava. Pericardium/Pleural No pericardial effusion. MMode/2D Measurements AND Calculations LVIDd: 4.9 cm IVSd: 0.89 cm Ao root diam: 3.4 cm LVIDs: 3.3 cm LVPWd: 0.94 cm RVDd: 3.8 cm FS: 33.1 % LAV(MOD-bp): 56.2 ml LVAd ap4: 33.6 cm2 EDV(MOD-sp2): 91.0 ml LAV(MOD-bp) Indexed: 26.0 ml/m2 EDV(MOD-sp4): 109.6 ml EF(MOD-sp2): 59.5 % LAV(MOD-sp2): 62.2 ml EDV(sp4-el): 108.0 ml LAV(MOD-sp4): 51.3 ml LVAs ap4: 21.1 cm2 ESV(MOD-sp4): 49.9 ml ESV(sp4-el): 48.1 ml EF(MOD-sp4): 54.5 % EF(sp4-el): 55.4 % SV(MOD-sp4): 59.8 ml SV(MOD-sp2): 54.1 ml SV(sp4-el): 59.8 ml LA dimension(2D): 3.6 cm LA A4 area: 19.7 cm2 RA A4 area: 17.4 cm2 Time Measurements MV dec time: 0.23 sec Doppler Measurements AND Calculations MV E max arash: 42.7 cm/sec Lat Peak E' Arash: 10.3 cm/sec Med Peak E' Arash: 8.3 cm/sec MV A max arash: 39.3 cm/sec E/E' lat: 4.2 E/E' med: 5.1 MV E/A: 1.1 Ao V2 max: 88.6 cm/sec LV V1 max: 96.1 cm/sec PA V2 max: 112.8 cm/sec Ao max P.1 mmHg LV V1 max P.7 mmHg TR max arash: 169.9 cm/sec TR max P.6 mmHg Interpretation Summary Normal LV size. Left ventricular systolic function is normal. The estimated ejection fraction is 56 %. Normal diastology for age. Mild (1+) eccentric mitral valve insufficiency. Ordering Physician: Rebecca Bedoya Referring Physician: Rebecca Bedoya Performed By: Leilani Cisse, TRISHA, RVT 06/09/181034 Date Braulio Aguilar MD CC: Rebecca Bedoya DO Date Dictated: 06/09/18 0923 Date Transcribed: 06/09/181034 Spinning Bath Person: Signed STRESS REPORT Observed: 06/09/2018 Status: F Source: [place] 9:42 AM [facility] REPOSITORY [facility] Cardiovascular Services [address] [place] [address] MR#: [id number] Acct: [id number] Name: DERRICK MCCONNELL Rep #: [id number] : 1960 57 From: Braulio Aguilar MD Primary Care: Aureliano Rebecca Status: REG CLI Ordering Dr: Alvaro: Matty Sheehan Stress Test Report Exercise myocardial perfusion stress test. 57-year-old man with a history of dyspnea on exertion. Medications vitamins. Stress protocol: Resting EKG demonstrates sinus bradycardia with a rate of 57 bpm resting blood pressure 140/98 mmHg. The patient exercised according to regular Jamil protocol for a total duration of 11 minutes and 16 seconds completing 2 minutes and 16 seconds into stage III of the Jamil protocol. The maximum workload attained was 13.4 metabolic equivalents. The maximum heart rate was 146 bpm which was 89% of maximum predicted heart rate. The patient maintained sinus rhythm throughout the recording. At rest there were no ST or T wave changes noted suggest ischemia peak exercise nonspecific ST-T wave changes were noted with normally the criteria for ischemia. No clinical angina was noted resting blood pressure 140/98 with a peak blood pressure 180/84. No clinical angina was noted the test was terminated due to leg fatigue. Myocardial perfusion protocol. 11.9 mCi of technetium 99m sestamibi was injected at rest. The patient exercised according to regular Jamil protocol for total duration of 11 minutes plus. At peak exercise 34.3 mCi of technetium 99m sestamibi was injected stress images were obtained stress and rest images were reconstructed and compared in the short axis vertical and horizontal long axis. Gated images were also obtained next Perfusion SPECT analysis. Review of the images demonstrate normal uptake of tracer noted in all areas of myocardium. The resting images similarly demonstrate normal uptake of tracer noted in all areas of myocardium. No areas of reversibility are noted suggest ischemia no previous infarct is noted. Next Gated SPECT analysis: The gated ejection fraction is noted to be 58%. Conclusion: Normal exercise myocardial perfusion stress test at a high workload. Preserved ejection fraction. No clinical angina noted. 06/09/18941 <Electronically signed by Braulio Aguilar MD> Date Braulio Aguilar MD CC: Rebecca Bedoya DO Date Dictated: 06/09/18939 Date Transcribed: 12/18/18 0940 Spinning Bath Person: CO Signed CHEST PA AND LATERAL Observed: 04/13/2018 Status: F Source: [place] 1:59 PM [facility] REPOSITORY [facility] Imaging Services [address] [place] [address] Chest PA and Lateral MR#: [id number] Acct: [id number] Name: DERRICK MCCONNELL Rep #: [id number] : 1960 M 57 From: Kenan Brock MD PCP: Rebecca Bedoya DO Status: REG CLI Study: Chest PA and Lateral Date of Exam: 04/13/18 Exam# [id number] Ordering Dr: Rebecca Bedoya DO STUDY: X-RAY CHEST REASON FOR EXAM: Male, 57 years old. Shortness of breath. Possible COPD. TECHNIQUE: PA and lateral views of the chest on 3 films. COMPARISON: None. FINDINGS: The lungs are clear and expanded. There is no demonstrated pleural abnormality. Normal size heart. Normal mediastinum and augusto. Normal visualized pulmonary arteries. Normal visualized aortic arch and descending thoracic aorta. There are degenerative changes of the mid thoracic spine. Normal visualized ribs, clavicles, and shoulders. There is no demonstrated abnormality of the visualized soft tissue structures of the upper abdomen. RAD/Chest PA and Lateral IMPRESSION: No acute cardiopulmonary disease. Electronically Signed: Armond Brock MD at 14:11 EDT , Service support , CC: Rebecca Bedoya DO Spinning Bath Person: Signed THYROID Observed: 01/21/2018 Status: F Source: [place] 8:12 AM [facility]OSPITAL REPOSITORY [facility] Imaging Services [address] [place] [address] Thyroid MR#: [id number] Acct: [id number] Name: DERRICK MCCONNELL Sina Rep #: [id number] : 1960 M 57 From: Franco Gleason DO PCP: Rebecca Bedoya DO Status: REG CLI Study: Thyroid Date of Exam: 01/21/18 Exam# [id number] Ordering Dr: Rebecca Bedoya DO STUDY: THYROID [...] solid, cystic or complex lesions. Is normal vascularity on Doppler imaging. LEFT LOBE: The left lobe of the thyroid gland measures 1.1 x 1.5 x 1.6 cm. There is a homogeneous echotexture. There are no demonstrated solid, cystic or complex lesions. Normal vascularity and Doppler imaging. ISTHMUS: The isthmus measures 0.3 cm. The regional lymph nodes are normal. US/Thyroid IMPRESSION: Essentially normal thyroid. Electronically Signed: Franco Gleason DO at 20:06 EDT Tel [phone], Service support , CC: Rebecca Bedoya DO Spinning Bath Person: Signed PROGRESS Observed: 11/22/2017 Status: COMPLETED Source: [place] 4:21 PM [facility] REPOSITORY HNO ID: [id number] Author: Eduard Guo Service: (none) Author Type: Nurse Practitioner Type: Progress Notes Filed: 11/22/2017 4:34 PM Note Text: Subjective HPI HPI Ani Mcconnell is a 57 year old male who presents today for CC of fish hook stuck in left middle finger. This started today. Has tried removing himself, unsuccessful. Uncertain of when last tetanus vaccination was, certain outside of 5 years .Patient presents with: Laceration: LT middle finger, fishing hook No past medical history on file. PAST SURGICAL HISTORY Procedure Laterality Date - PAST SURGICAL HISTORY OF hx atypical moles, multiple ALLERGIES Patient has no known allergies. MEDICATIONS No prescriptions on file. FAMILY HISTORY Problem Relation Age of Onset - Hypertension Father - None Mother Social History Substance Use Topics - Smoking status: Former Smoker - Smokeless tobacco: Current User Comment: social smoking - Alcohol use Yes Comment: wine, beer Review of Systems Constitutional: Negative for chills and fever. Skin: Negative for itching and rash. Objective Blood pressure 130/78, pulse 82, temperature 36.9 ?C (98.5 ?F), temperature source Tympanic, weight 88.9 kg (196 lb). Physical Exam Constitutional: He is oriented to person, place, and time and well-developed, well-nourished, and in no distress. Non-toxic appearance. He does not have a sickly appearance. No distress. HENT: Head: Normocephalic and atraumatic. Cardiovascular: Pulses: Radial pulses are 2+ on the left side. Pulmonary/Chest: Effort normal. No accessory muscle usage. No respiratory distress. Musculoskeletal: Hands: Neurological: He is alert and oriented to person, place, and time. Skin: He is not diaphoretic. Procedure: Site cleansed with isopropyl alcohol Discussed potential complications with patient. 0.5cc of 1% lidocaine injected. Fine stab incision made near tip of imbedded fish hook. Hook shaft was forced out through stab incision and hook piece was removed safely. Patient tolerated well. ASSESSMENT/PLAN: 1. Need for vaccination - ICD9: V05.9, ICD10: Z23 (primary diagnosis) - TDAP VACCINE AGE 7+ IM 2. Fish hook injury of finger of left hand, initial encounter - ICD9: 959.5, ICD10: S69.92XA -discussed prophylactic antibiotic, patient declined -discussed xray to see if remaining foreign body, patient declined -Watch for signs of infection, follow up if occur -Obtain xray to ensure no other foreign bodies present. Prescription instructions reviewed with patient as applicable. Patient advised if symptoms do not improve or if symptoms worsen sooner, to contact the office for further evaluation by their primary care physician. Potential red flag symptoms discussed with the patient. Reviewed appropriate action plan to take if red flag symptoms occur. Patient agreeable to treatment plan. Eduard Guo APRN.SEAM STAYER CNOV Observed: 11/22/2017 Status: COMPLETED Source: [place] 3:15 PM [facility] REPOSITORY Office Visit (WSTR) ANI MCCONNELL ([id number]) 1960 M Date Time Provider Department 11/22/17 3:15 PM EDUARD GUO ([place]) [facility] During your visit today, we recorded the following information about you: Temperature Pulse Blood pressure Weight 98.5 degrees 82/minute 130/78 88.9 kg Eduard Guo APRN.CNP 11/22/2017 3:52 PM Signed ASSESSMENT/PLAN: 1. Need for vaccination - ICD9: V05.9, ICD10: Z23 (primary diagnosis) - TDAP VACCINE AGE 7+ IM 2. Fish hook injury of finger of left hand, initial encounter - ICD9: 959.5, ICD10: S69.92XA Watch for signs of infection, follow up if occur Obtain xray to ensure no other foreign bodies present. Eduard Guo APRN.CNP 11/22/2017 4:34 PM Signed Subjective HPI HPI Ani Mcconnell is a 57 year old male who presents today for CC of fish hook stuck in left middle finger. This started today. Has tried removing himself, unsuccessful. Uncertain of when last tetanus vaccination was, certain outside of 5 years .Patient presents with: Laceration: LT middle finger, fishing hook No past medical history on file. PAST SURGICAL HISTORY Procedure Laterality Date - PAST SURGICAL HISTORY OF hx atypical moles, multiple ALLERGIES Patient has no known allergies. MEDICATIONS No prescriptions on file. FAMILY HISTORY Problem Relation Age of Onset - Hypertension Father - None Mother Social History Substance Use Topics - Smoking status: Former Smoker - Smokeless tobacco: Current User Comment: social smoking - Alcohol use Yes Comment: wine, beer Review of Systems Constitutional: Negative for chills and fever. Skin: Negative for itching and rash. Objective Blood pressure 130/78, pulse 82, temperature 36.9 ?C (98.5 ?F), temperature source Tympanic, weight 88.9 kg (196 lb). Physical Exam Constitutional: He is oriented to person, place, and time and well-developed, well-nourished, and in no distress. Non-toxic appearance. He does not have a sickly appearance. No distress. HENT: Head: Normocephalic and atraumatic. Cardiovascular: Pulses: Radial pulses are 2+ on the left side. Pulmonary/Chest: Effort normal. No accessory muscle usage. No respiratory distress. Musculoskeletal: Hands: Neurological: He is alert and oriented to person, place, and time. Skin: He is not diaphoretic. Procedure: Site cleansed with isopropyl alcohol Discussed potential complications with patient. 0.5cc of 1% lidocaine injected. Fine stab incision made near tip of imbedded fish hook. Hook shaft was forced out through stab incision and hook piece was removed safely. Patient tolerated well. ASSESSMENT/PLAN: 1. Need for vaccination - ICD9: V05.9, ICD10: Z23 (primary diagnosis) - TDAP VACCINE AGE 7+ IM 2. Fish hook injury of finger of left hand, initial encounter - ICD9: 959.5, ICD10: S69.92XA -discussed prophylactic antibiotic, patient declined -discussed xray to see if remaining foreign body, patient declined -Watch for signs of infection, follow up if occur -Obtain xray to ensure no other foreign bodies present. Prescription instructions reviewed with patient as applicable. Patient advised if symptoms do not improve or if symptoms worsen sooner, to contact the office for further evaluation by their primary care physician. Potential red flag symptoms discussed with the patient. Reviewed appropriate action plan to take if red flag symptoms occur. Patient agreeable to treatment plan. 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 Need for vaccination - ICD9: V05.9, ICD10: Z23 (primary diagnosis) - TDAP VACCINE AGE 7+ IM 2. Fish hook injury of finger of left hand, initial encounter - ICD9: 959.5, ICD10: S69.92XA Watch for signs of infection, follow up if occur Obtain xray to ensure no other foreign bodies present. Encounter Status:Closed by EDUARD GUO CNP on 11/22/17 ALLERGIES ALLERGIES DATE TYPE / CODE NAME / CODE REACTION SEVERITY SOURCE Drug NO KNOWN [facility] Class/70689 ALLERGIES [facility] 1003(SNOMED Repository CT) ENCOUNTERS ENCOUNTERS ADMIT/DISCHARGE ACCOUNT ADMITTING ENCOUNTER LOCATION SOURCE NUMBER CLASS 07/03/2018 [id number] Ambulatory Building:[facility] Repository 06/09/2018 [id number] Ambulatory [facility] ing:[facility] Repository 06/09/2018 [id number] Ambulatory [facility]MSBuilding:[facility] Repository 04/13/2018 [id number] Ambulatory [facility] ing:[facility] Repository 01/21/2018 [id number] Ambulatory [facility] ing: Repository 01/21/2018 [id number] [facility] ing:[facility] Repository 11/22/2017/11/27/19 [id number] Ambulatory [address] Repository FUNCTIONAL STATUS FUNCTIONAL STATUS No Functional Status Records FoundEQUIPMENT EQUIPMENT No Equipment Records FoundPAYERS PAYERS ENCOUNTER GUARANTOR PAYER SUBSCRIBER SOURCE 07/03/2018 [facility] OGDENDOB: Insurance:GINGER ALANOB: Repository INDUSTRIES/CLAIMSPoli [id number] johnny Richardson Number: [address] [place] [address]Hfa: 5877Effective CRISTINA Amaro Date:[id number] 15900Myc: (283) (HP)Tel: (638) Name:[phone] (HP) [phone] (KC) [address] [address]LL: 07/03/2018 Secondary DERRICK [facility] Practices Insurance:Medical OGDENDOB: Repository [facility] [id number] Number: [address] [id number], [place] Date:2008-06-23 05959Spd: [id number] ~(3 Name:[address] () [address], [place] [id number]: 06/09/2018 DERRICK A Primary DERRICK A Rock [id number] BRENN Insurance:GINGER OGDENDOB: [place], [place] [employer] [facility] [id number] Hospital [address]Fse: (330) Number: [id number] Repository [phone] () Date:[id number] MEDICAL CLAIMSPO [address] [place], [place] [address]CJ: 06/09/2018 Secondary NOT GIVENUNK Sylvia Insurance:SELF PAY [facility] Number: Effective Repository Date:2018-05-29 06/09/2018 DERRICK A Primary DERRICK A Sylvia [id number] BRENN Insurance:GINGER OGDENDOB: [facility] [id number] Hospital [address]Zlt: (330) Number: [id number] Repository [phone] () Date:[id number] MEDICAL CLAIMSPO [address], [place] [address]EP: 06/09/2018 Secondary NOT GIVENUNK Sylvia Insurance:SELF PAY [facility] Number: Effective Repository Date:2018-06-09 04/13/2018 DERRICK A Primary DERRICK A Rock [id number] BRENN Insurance:GINGER OGDENDOB: [place] [employer] [facility] [id number] Hospital [address]Psx: (330) Number: [id number] Repository [phone] () Date:[id number] MEDICAL CLAIMS [address] [place], [place] [address]YP: 04/13/2018 Secondary NOT GIVENUNK Sylvia Insurance:SELF PAY [facility] Number: Effective Repository Date:2018-04-13 01/21/2018 DERRICK A Primary DERRICK Andino [address] [id number] BRENN Insurance:GINGER ALANOB: [employer] [facility] [id number] Hospital [address]Ecg: (330) Number: [id number] Repository [phone] () Date:[id number] MEDICAL CLAIMSPO [address] [place], [place] [address]UX: 01/21/2018 Secondary NOT GIVENUNK Sylvia Insurance:SELF PAY [facility] Number: Effective Repository Date:2018-01-14 01/21/2018 DERRICK A Primary NOT GIVENUNK Rock [id number] BR[place] Insurance:SELF PAY [employer] [facility] [address]Jkq: (330) Number: Effective Repository [phone] () Date:2018-01-14 SOCIAL HISTORY SOCIAL HISTORY No Social History Records FoundFAMILY HISTORY FAMILY HISTORY No Family History Records FoundPREGNANCY No Status Records FoundADVANCE DIRECTIVES ADVANCE DIRECTIVES No Advanced Directives Records FoundINFORMATION SOURCE INFORMATION SOURCE DATE CREATED AUTHOR AUTHOR'S ORGANIZATION 07/15/2018 KARIS
== END ==
PROVIDERS: Family Provider Internal Medicine; PCP Internal Medicine; Referring Provider Internal Medicine; Visit Provider Internal Medicine
DX: R06.09 Other forms of dyspnea (principal)
CPT/HCPCS: 78452; 93017; 93306; A9500; A4216

== ENCOUNTER 2019-11-01 23:29 | Emergency (ER) | payer OTHER, SELFPAY ==
[2019-11-01 23:31] VITALS: BP 136/79; PULSE 81; RESP 18; TEMP 36.6; O2SAT 97; BMI 26.3
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
== END 2019-11-02 00:25 | disposition home or self-care (01) ==
PROVIDERS: Emergency Provider Emergency Medicine; PCP Internal Medicine
DX: S01.01XA Laceration without foreign body of scalp, initial encounter (principal); W22.8XXA Striking against or struck by other objects, initial encounter; Y93.9 Activity, unspecified; Y92.9 Unspecified place or not applicable; Y99.0 Civilian activity done for income or pay
CPT/HCPCS: 99282

== ENCOUNTER 2023-10-21 20:26 | Emergency (ER) | payer BC, SELFPAY ==
[2023-10-21 20:26] VITALS: BP 141/84; PULSE 92; RESP 16; TEMP 37.1; O2SAT 96; BMI 26.5
[2023-10-21 20:28] VITALS: BP 141/84; PULSE 92; RESP 16; TEMP 37.1; O2SAT 97
[2023-10-21 21:28] VITALS: BP 141/84; PULSE 92; RESP 16; TEMP 37.1; O2SAT 97
[2023-10-21 22:00] VITALS: BP 138/80; PULSE 90; RESP 17; TEMP 37; O2SAT 99
--- NOTE | 2023-10-21 22:05 | RAD_ITS ---
STUDY: X-RAY CHEST REASON FOR EXAM: Male, 63 years old. FEVER TECHNIQUE: Single frontal view of the chest. COMPARISON: April 13, 2018. FINDINGS: Subsegmental atelectasis left base. The lungs are clear and expanded. There is no demonstrated pleural abnormality. Normal size heart. Normal mediastinum and augusto. Normal visualized pulmonary arteries. Normal visualized aortic arch and descending thoracic aorta. Normal visualized thoracic spine. Normal visualized ribs, clavicles, and shoulders. There is no demonstrated abnormality of the visualized soft tissue structures of the upper abdomen. RAD/Chest 1 View (Portable) IMPRESSION: Subsegmental atelectasis left base Electronically Signed: Frank Strickland MD at 22:42 EDT ,
--- NOTE | 2023-10-21 22:10 | EDS_ITS ---
HPI History of Present Illness Chief Complaint: Fever Narrative Narrative: 63-year-old male with no significant past medical history presenting with lightheadedness. He states he had a fever on Friday of 103 history of had chills and bodyaches. He denies rhinorrhea, cough, congestion. He states that he noted that his urine was dark so he started drinking more more water and urinated frequently until his urine was more clear but thinks he went back to work prematurely today because while he was working he started to feel lightheaded and described this as fever he. But when he elaborates he states it felt like he could not hold his head up and he was going to faint. He denies chest pain but felt short of breath while he was walking around work today. He is not nauseous or vomiting actually states he feels better now after drinking a sonia heraclio and is hungry. He states his urine is now dark again but he denies dysuria or hematuria. PFSH PFSH Medical History no medical history Home Medications NK 10/21/23 [History Last Taken Unknown] Allergy/AdvReac Type Severity Reaction Status Date / Time No Known Allergies Allergy Verified 10/21/23 20:26 Social History Smoking Status: Current some day smoker tobacco type: cigarettes ROS ROS ED Constitutional Constitutional ED: Denies chills, fever(s) or sweats Eyes Eyes: Denies blurry vision or change in vision ENT ENT ED: Denies ear pain or sore throat Cardiovascular Cardiovascular: Reports other Details: Near syncope ; Denies chest pain, palpitations or racing heartbeat Respiratory/Chest Respiratory/Chest: Denies cough, dyspnea or sputum Gastrointestinal Gastrointestinal: Denies abdominal pain, constipation, diarrhea, nausea or vomiting Genitourinary Genitourinary ED: Denies dysuria, hematuria or urinary frequency Musculoskeletal Musculoskeletal: Denies arthralgias, myalgias or neck pain Integumentary Denies abscess, Abrasions or rash Neurologic Neurologic: Denies headache(s), paresthesias or weakness Psychiatric Psychiatric: Denies anxiety, depression, suicidal ideation or suicidal thoughts Endocrine Endocrinology: Denies polydipsia or polyuria EXAM Physical Exam Const Vital Signs: 10/21/23 20:26 10/21/23 20:28 10/21/23 21:15 Temperature 98.8 F 98.8 F Temperature Source Temporal Temporal Pulse Rate 92 92 Pulse Rate [Lying] Pulse Rate [Sitting (for 1 minute prior to obtaining)] Pulse Rate [Standing (for 1 minute prior to obtaining)] Respiratory Rate 16 16 Respiratory Effort Normal Respiratory Pattern Normal Blood Pressure 141/84 H 141/84 H Blood Pressure [Lying] Blood Pressure [Sitting (for 1 minute prior to obtaining)] Blood Pressure [Standing (for 1 minute prior to obtaining)] Blood Pressure Mean 103 103 Blood Pressure Mean [Lying] Blood Pressure Mean [Sitting (for 1 minute prior to obtaining)] Blood Pressure Mean [Standing (for 1 minute prior to obtaining)] Pulse Ox 96 97 Oxygen Delivery Method 10/21/23 21:28 10/21/23 22:00 10/21/23 22:59 Temperature 98.8 F 98.6 F Temperature Source Oral Oral Pulse Rate 92 90 Pulse Rate [Lying] 77 Pulse Rate [Sitting (for 1 minute prior to obtaining)] 78 Pulse Rate [Standing (for 1 minute prior to obtaining)] 90 Respiratory Rate 16 17 Respiratory Effort Respiratory Pattern Blood Pressure 141/84 H 138/80 H Blood Pressure [Lying] 132/72 H Blood Pressure [Sitting (for 1 minute prior to obtaining)] 126/76 H Blood Pressure [Standing (for 1 minute prior to obtaining)] 127/75 H Blood Pressure Mean 103 99 Blood Pressure Mean [Lying] 92 Blood Pressure Mean [Sitting (for 1 minute prior to obtaining)] 92 Blood Pressure Mean [Standing (for 1 minute prior to obtaining)] 92 Pulse Ox 97 99 Oxygen Delivery Method Room Air Room Air Positive well nourished General Appearance ED: NAD; Negative for pallor HEENT Reports moist mucous membranes Eyes PERRL Resp normal respiratory effort and clear to auscultation bilaterally Auscultation: Negative for rales, rhonchi or wheezes Cardio regular rate and regular rhythm Neuro oriented x3 and CN's II-XII intact bilaterally Sensorium / Orientation: alert Psych mental status grossly normal Skin no rashes or lesions noted General Skin Exam: Negative for jaundice or pallor MDM MDM MDM Narrative Medical decision making narrative: Patient presenting with lightheadedness and weakness. He thinks he might be dehydrated and notes dark urine. He felt like he was going to faint today at work. He denies any medical history. Patient did not fall or hit his head. He denies headache, nausea, vomiting. He denies chest pain but states he was short of breath earlier when walking. Differential includes ACS, dysrhythmia, dehydration, anemia, electrolyte abnormalities,, orthostatic hypotension, UTI, pneumonia. Considered viral symptoms however the patient has been sick since Friday and is outside the treatment window for COVID or influenza testing. Will obtain a chest x-ray to rule out pneumonia. CBC to assess white blood cell count, hemoglobin and platelets. CMP to assess liver function, renal function, electrolytes, glucose. Urinalysis to assess for UTI or dehydration. High- sensitivity troponin and EKG to assess for ischemia/dysrhythmia. Orthostatic vital signs will be obtained. Patient given a liter normal saline. CBC shows normal white blood cell count, hemoglobin, platelets. BMP shows normal renal function, electrolytes. EKG on my interpretation shows a sinus rhythm at 80 bpm without sign of ischemic change or ectopy. Chest x-ray my interpretation shows no acute cardiopulmonary process. The radiologist interprets this and agrees. Orthostatic vital signs are negative. Patient feeling improved after fluids. I feel he stable for discharge home at this time. Return precautions discussed. Impression: 1. Near syncope 2. History of fever Lab Data Attestation: I reviewed the patient's lab results. Labs: Laboratory Results - last 24 hr 10/21/23 22:14 WBC 5.0 RBC 4.11 L Hgb 12.7 L Hct 38.6 L MCV 93.9 MCH 30.9 MCHC 32.9 RDW Std Deviation 45.2 H RDW Coeff of Power 13.2 Plt Count 211 MPV 10.4 Immature Gran % (Auto) 0.600 Neut % (Auto) 78.2 H Lymph % (Auto) 9.8 L Morton % (Auto) 10.0 Eos % (Auto) 0.8 Baso % (Auto) 0.6 Absolute Neuts (auto) 3.9 Absolute Lymphs (auto) 0.49 L Nucleated RBC % 0 Differential Comment SEE COMMENT Platelet Estimate ADEQUATE Plt Morphology Comment LARGE RBC Morphology N CHROM Anisocytosis RARE Macrocytosis RARE Sodium 138 Potassium 4.3 Chloride 106 Carbon Dioxide 28.0 Anion Gap 4 L BUN 18 Creatinine 1.04 Estim Creat Clear Calc 85.63 Est GFR (MDRD) Af Amer 93 Est GFR (MDRD) Non-Af 77 BUN/Creatinine Ratio 17.3 Glucose 103 Calcium 8.9 Total Bilirubin 0.40 AST 45 H ALT 53 Alkaline Phosphatase 47 Troponin I High Sens 8 Total Protein 7.1 Albumin 3.6 Globulin 3.5 Albumin/Globulin Ratio 1.0 Radiography Diagnostic Testing: Clinical Impression(s) from Imaging Studies Chest X-Ray 10/21/23 22:05 IMPRESSION: Subsegmental atelectasis left base Electronically Signed: Frank Strickland MD at 22:42 EDT Reading Location ID and State: [facility] / [place] Tel , Service support , Discharge Plan Triage Chief Complaint: Fever ED Provider: Nikolas Peñaloza Dx/Rx/DC Orders Instructions: ED Near-Fainting, Uncertain Cause Prescriptions: No Action NK Primary Care Provider: Care Physician,No Primary Referrals: [facility] [Provider Group] - 3-5 Days Care Physician,No Primary [Primary Care Provider] - Disposition Disposition: Home, Self Care
[2023-10-21 22:20] LABS: Absolute Lymphocyte Count 0.49 X10^3/uL (0.83-4.51); Absolute Neutrophil Count 3.9 X10^3/uL (2.0-7.7); Basophil# 0.03 X10^3/uL; Basophil% 0.6 % (0-1); Eosinophil# 0.04 X10^3/uL; Eosinophils% 0.8 % (0-5); Hematocrit 38.6 % (40-54); Hemoglobin 12.7 g/dL (13.0-16.5); Lymphocyte # 0.49 X10^3/ul (0.83-4.51); Lymphocyte % 9.8 % (19-41); Mean Corp Hgb Conc 32.9 g/dL (32-36); Mean Corpuscular Hgb 30.9 pg (27.0-32.0); Mean Corpuscular Volume 93.9 fL (80-94); Mean Platelet Vol. 10.4 fl (6.2-12.0); NRBC Flagged by Analyzer 0 % (0-5); Neutrophil # 3.89 X10^3/uL (2.7-7.7); Neutrophil % 78.2 % (47-70); POSITIVE DIFFERENTIAL YES; Platelet Count 211 K/mm3 (150-450); RBC Distribution Width CV 13.2 % (11.6-14.6); RBC Distribution Width SD 45.2 fl (35.1-43.9); Red Blood Count 4.11 M/mm3 (4.6-6.2)
--- NOTE | 2023-10-21 22:36 | EKG12_ITS ---
Test Reason : FEVER Blood Pressure : / mmHG Vent. Rate : 080 BPM Atrial Rate : 080 BPM P-R Int : 156 ms QRS Dur : 088 ms QT Int : 360 ms P-R-T Axes : 058 -19 037 degrees QTc Int : 415 ms Normal sinus rhythm Normal ECG Confirmed by JUAN LLOYD, ROBBY ([id number]), design editor MARKOS BRISCOE ([id number]) on 10/23/2023 11:46:23 AM Referred By: KINSEY Confirmed By:ROBBY MARTINEZ MD
[2023-10-21 22:42] LABS: AST(SGOT) 45 U/L (15-37); Alanine Aminotransfer ALT/SGPT 53 U/L (16-61); Albumin, Serum 3.6 g/dL (3.2-5.0); Alkaline Phosphatase 47 U/L (45-117); Anion Gap 4 (5-15); BUN 18 mg/dL (7-18); BUN/Creat Ratio 17.3 RATIO (10-20); Calcium,Total 8.9 mg/dL (8.5-10.1); Chloride 106 mmol/L (98-107); Creatinine, Serum 1.04 mg/dL (0.70-1.30); EST Glomerular Filtration Rate 77 mL/min (>60); Est Glom Filt Rate - Afr Amer 93 mL/min (>60); Estimated Creatinine Clearance 85.63 ml/min; Globulin 3.5 g/dL (2.2-4.2); Glucose 103 mg/dL (74-106); Potassium 4.3 mmol/L (3.5-5.1); Protein, Total 7.1 g/dL (6.4-8.2); Sodium Level 138 mmol/L (136-145); Troponin-I HS 8 pg/mL (3.0-78.0)
[2023-10-21 22:58] LABS: Bacteria 0 SEEN /hpf (None Seen); Mucous, Urine 0 SEEN /hpf (<or=2+); Red Blood Cells-Urine 0 SEEN /hpf (0-5); Squamous Epithelial Cells - UA 0 SEEN /hpf (0-5); White Blood Cells 0 SEEN /hpf (0-5)
[2023-10-21 22:59] VITALS: BP 126/76; BP 127/75; BP 132/72; PULSE 77; PULSE 78; PULSE 90
[2023-10-21 23:04] LABS: Color, Urine Yellow (Yellow); Glucose, Dipstick Normal (Normal); Ketone-Dipstick Negative (Negative); Leukocyte Esterase-Dipstick Negative /ul (Negative); Nitrite-Dipstick Negative (Negative); Occult Blood-Urine Negative /ul (Negative); Protein-Dipstick Negative (Negative); Urine Bilirubin Dipstick Negative (Negative); Urine Clarity Clear (Clear); Urine Urobilinogen Normal (Normal)
[2023-10-21 23:05] LABS: Differential Indicated SCAN CRITERIA MET
[2023-10-21 23:07] LABS: Anisocytosis RARE; Macrocytosis RARE; Platelet Estimate ADEQUATE (ADEQ); Platelet Morphology LARGE; Red Cell Morphology N CHROM NORMAL (NORM C&C)
[2023-10-21 23:28] VITALS: BP 127/97; PULSE 87; RESP 18; TEMP 36.4; O2SAT 99
== END 2023-10-21 23:33 | disposition home or self-care (01) ==
PROVIDERS: Emergency Provider Student in an Organized Health Care Education/Training Program; Visit Provider Student in an Organized Health Care Education/Training Program
DX: R55 Syncope and collapse (principal); F17.210 Nicotine dependence, cigarettes, uncomplicated
CPT/HCPCS: 71045; 80053; 81001; 84484; 85025; 93005; 99284; A4216